=== PATIENT | male | born 1960 | race Caucasian/White ===

== ENCOUNTER 2018-09-14 10:44 | Emergency (ER) | payer OTHER ==
[~2018-09-14] VITALS: Ht 170.2 cm; Wt 87.5 kg
[2018-09-14 10:48] VITALS: BP 132/75
--- NOTE | 2018-09-14 10:50 | NUR ---
TO LOBBY A/W BED, AMBULATORY, NO ACTIVE BLEEDING AT THIS TIME, ALTAGRACIA NOTED
--- NOTE | 2018-09-14 12:43 | NUR ---
PATIENT AMBULATED TO BED 4 AT THIS TIME.
--- NOTE | 2018-09-14 12:45 | NUR ---
58Y/M BIB SELF WITH C/O NOSE BLEED FOR A WEEK, ON CHEMOTHERAPHY. NO ACTIVE BLEEDING AT THIS TIME. PT IS AAOX4, VSS AT THIS TIME, EVEN AND UNLABORED BREATHING, BED DOWN, LOW, LOCKED, BEDRAIL UP X 1, ER MD AWARE AND NOTIFIED OF PT STATUS. PMH: CANCER RX: NONE
--- NOTE | 2018-09-14 13:00 | NUR ---
Patient appears to be resting comfortably in bed. Vital Signs within normal limits. Respirations even and unlabored.
--- NOTE | 2018-09-14 14:13 | NUR ---
Patient being evaluated by physician at bedside.
[2018-09-14] MEDS ORDERED: DEXAMETHASONE 10 MG/ML VIAL IM ONE (14:15)
[2018-09-14] MEDS ORDERED: CLINDAMYCIN 600 MG/4 ML VIAL IM ONE (14:15)
[2018-09-14] MEDS ORDERED: ALBUTEROL SULFATE/IPRATROPIU 3 ML SOL IH ONE (14:15)
[2018-09-14 16:09] VITALS: BP 130/70
--- NOTE | 2018-09-14 16:11 | NUR ---
Patient discharged with v/s stable. Written and verbal after care instructions given and explained. Patient alert, oriented and verbalized understanding of instructions. Ambulatory with steady gait. All questions addressed prior to discharge. ID band removed. Patient advised to follow up with PMD. Rx of clindamycin, levaquin, prednisone given. Patient educated on indication of medication including possible reaction and side effects. Opportunity to ask questions provided and answered.
== END 2018-09-14 16:11 | disposition home or self-care (01) ==
LOC: MED 10:44
DX: J32.0 Chronic maxillary sinusitis (principal); F17.210 Nicotine dependence, cigarettes, uncomplicated; I10 Essential (primary) hypertension; Z85.9 Personal history of malignant neoplasm, unspecified
CPT/HCPCS: 70486; 94640; 96372; 99284; J1100; J3490; J7620

== ENCOUNTER 2018-09-18 12:20 | Emergency (ER) | payer OTHER ==
[~2018-09-18] VITALS: Ht 165.1 cm; Wt 87.7 kg
[2018-09-18 12:21] VITALS: BP 167/108
[2018-09-18] MEDS ORDERED: METOPROLOL 25 MG TAB PO ONE (12:40)
--- NOTE | 2018-09-18 12:45 | NUR ---
58 yo m bib family w/ c/o epistaxis since 0400 this morning. reports that it stopped for about 1 hour. the bleeding appears to have stopped at this time. pt seen in [facility] er 3 days ago for same thing. pt recently started chemo therapy 2 weeks ago for skin cancer. skin intact, reddened. aaox4, gcs 15. cms intact. reports slight headache, denies dizziness. bp elevated, 167/108. Pt denies any sob or cp. RR are even and unlabored. Skin is warm/dry/color apprioriate for ethnicity. Nad. Awaiting er md adams. Will continue to monitor.
--- NOTE | 2018-09-18 12:50 | NUR ---
lab by bedside
[2018-09-18 13:03] LABS: BASOPHILS # (AUTO) 0.2 K/uL (0.00-0.22); BASOPHILS % (AUTO) 1.1 % (0.0-2.0); EOSINOPHILS % (AUTO) 0.1 % (0.0-4.0); HEMATOCRIT 46.1 % (36-52); HEMOGLOBIN 15.4 g/dL (12.0-18.0); LYMPHOCYTES # (AUTO) 0.8 K/uL (2.0-11.5); MEAN CORPUSCULAR HEMOGLOBIN 30 pg (27-31); MEAN CORPUSCULAR HGB CONC 34 g/dL (33-37); MEAN CORPUSCULAR VOLUME 90.8 fL (80-94); MONOCYTES # (AUTO) 0.8 K/uL (0.8-1.0); MONOCYTES % (AUTO) 5.5 % (1.7-9.3); NEUTROPHILS # (AUTO) 12.3 K/uL (1.8-7.7); NEUTROPHILS % (AUTO) 87.3 % (42.2-75.2); PLATELET COUNT (AUTO) 218 K/uL (140-450); RED BLOOD CELL COUNT(AUTO) 5.08 MIL/uL (4.20-6.10); RED CELL DISTRIBUTION WIDTH 12.8 % (11.6-13.7); WHITE BLOOD COUNT (AUTO) 14.1 K/uL (4.8-10.8)
[2018-09-18 13:21] LABS: CARBON DIOXIDE 24.9 mmol/L (21-32); CREATININE 0.9 mg/dL (0.7-1.3); POTASSIUM 3.9 mmol/L (3.5-5.1)
[2018-09-18 13:22] LABS: PROTHROMBIN TIME 10.4 secs (10.8-13.4)
[2018-09-18 13:26] LABS: ALBUMIN 4.1 g/dL (3.4-5.0); TOTAL BILIRUBIN 0.6 mg/dL (0.0-1.0)
--- NOTE | 2018-09-18 14:00 | NUR ---
pt ambulated to and from bathroom with steady gait. returned to rm 9 without incident.
[2018-09-18 14:47] VITALS: BP 124/87
--- NOTE | 2018-09-18 14:47 | NUR ---
Patient discharged with v/s stable. Written and verbal after care instructions given and explained. Patient verbalized understanding. Ambulatory with steady gait. All questions addressed prior to discharge. Advised to follow up with PMD.
== END 2018-09-18 14:47 | disposition home or self-care (01) ==
LOC: MED 12:20
DX: R04.0 Epistaxis (principal); R42 Dizziness and giddiness; I10 Essential (primary) hypertension; Z85.9 Personal history of malignant neoplasm, unspecified
CPT/HCPCS: 36415; 80053; 85025; 85610; 85730; 99283